=== PATIENT | male | born 1985 | race Two or more races ===

== ENCOUNTER 2024-10-27 09:27 | Emergency (ER) | payer SELFPAY ==
[2024-10-27 09:44] VITALS: BP 135/85; PULSE 104; RESP 18; TEMP 36.6; O2SAT 98; BMI 32.0
--- NOTE | 2024-10-27 10:08 | XR_ITS ---
Examination: CT brain head without contrast. 2-D sagittal coronal reconstructions Date and time of exam:October 27, 2024, 1018 hrs CTDI: vol (mGy): 50.4. DLP: (mGycm): 1067 Technique: Multiple CT axial sections of the brain have been obtained, 5 mm slice thickness. Contrast has not been administered. 2-D sagittal, coronal reconstructions have been obtained Low dose protocols were performed. One or more of the following dose reduction techniques were used; automated exposure control, adjustment of the mA and/or KV according to patient size, use of iterative reconstruction technique. Findings: No significant ventricular enlargement. Intra-axial or extra-axial hemorrhage density is not seen. No mass effect or midline shift Basal cisterns are not remarkable. Fourth ventricle is midline. Cranial vault intact. Impression: Negative for acute hemorrhage, mass effect or midline shift
--- NOTE | 2024-10-27 10:11 | PD.EDRME ---
Rapid Medical Screening Exam RME Arrival date/time: 10/27/24 09:27 39-year-old male sent over by his PCP due to severe headache x 2 days. Patient also complaining of generalized weakness. I have greeted and performed a focused initial assessment of this patient. Initial appropriate labs ordered at this time. A comprehensive ED assessment and evaluation of the patient and analysis of all test and completion of medical decision making process will be conducted by additional ED provider. Chief Complaint: Headache Time Seen by Provider: 10/27/24 09:32 Vital signs: Vital Signs Temperature 97.9 F 10/27/24 09:44 Pulse Rate 104 H 10/27/24 09:44 Respiratory Rate 18 10/27/24 09:44 Blood Pressure 135/85 H 10/27/24 09:44 Pulse Oximetry (%) 98 10/27/24 09:44 Oxygen Delivery Method Room Air 10/27/24 09:44
[2024-10-27] MEDS: IBUPROFEN TAB 400 MG TABLET 800 MG PO (10:21)
[2024-10-27] MEDS: METOCLOPRAMIDE 5 MG TABLET 10 MG PO (10:22)
[2024-10-27] MEDS: DiphenhydrAMINE ELIX 25 MG/10 ML UDC 50 MG PO (10:22)
[2024-10-27 10:43] LABS: Basophils # (Auto) 0.1 Thou/mm3 (0.0-0.2); Basophils % (Auto) 1 % (0-2.5); Eosinophils # (Auto) 0.1 Thou/mm3 (0.0-0.5); Eosinophils % (Auto) 1 % (0-10); Hematocrit 43.6 % (41.0-53.0); Hemoglobin 16.1 g/dL (13.5-16.0); Immature Granulocytes Auto 0.01 Thou/mm3 (0.00-0.00); Lymphocytes # (Auto) 2.4 Thou/mm3 (1.0-4.8); Lymphocytes % (Auto) 41 % (10-50); Mean Corpuscular HGB Conc 36.9 g/dl (31.0-37.0); Mean Corpuscular Hemoglobin 32.3 pg (25.0-35.0); Mean Corpuscular Volume 88 fL (80-100); Monocytes # (Auto) 0.4 Thou/mm3 (0.0-0.8); Monocytes % (Auto) 6 % (0-12); Neutrophils # (Auto) 3.0 Thou/mm3 (1.8-7.7); Neutrophils % (Auto) 51 % (37-80); Nucleated Red Blood Cell # 0.00 Thou/mm3 (0.00-0.00); Nucleated Red Blood Cell % 0 /100 WBC (0); Platelet Count 208 Thou/mm3 (140-440); RDW Standard Deviation 37.7 fL (35.1-43.9); Red Blood Count 4.98 Miln/mm3 (4.50-5.90); White Blood Count 5.8 Thou/mm3 (3.8-10.6)
[2024-10-27 10:49] LABS: Amphetamine/Methamp Scrn,U Negative (Negative); Barbiturate Screen,Urine Negative (Negative); Benzodiazepines Screen,Urine Negative (Negative); Benzoylecgonine Screen, Ur Negative (Negative); Fentanyl Screen,Urine Negative (Negative); Opiate Screen,Urine Negative (Negative); THC Screen,Urine Negative (Negative)
[2024-10-27 11:02] LABS: Alanine Aminotransferase 55 U/L (10-49); Albumin, Serum 4.8 gm/dL (3.5-5.0); Albumin/Globulin Ratio 1.8 (1.2-2.2); Alcohol, Blood Medical < 3.0 mg/dL (0-10.0); Alkaline Phosphatase 167 U/L (46-116); Anion Gap 13 (7-16); Aspartate Amino Transferase 31 U/L (0-34); BUN/Creatinine Ratio 7 Ratio (12-20); Bilirubin,Total 0.6 mg/dL (0.3-1.2); Blood Urea Nitrogen 8 mg/dL (9-23); Calcium 9.7 mg/dL (8.3-10.6); Calcium (Corrected) 9.7 mg/dL (8.5-10.1); Carbon Dioxide 26.9 mMol/L (20.0-31.0); Chloride 97 mMol/L (98-107); Creatinine (Component) 1.2 mg/dL (0.6-1.3); Estimated Creatinine Clearance 96.5 mL/min (>60); Globulin 2.6 gm/dL (2.3-3.5); Glucose 322 mg/dL (74-106); Lipase 25 U/L (12-53); Osmolality,Calculated 284 (275-295); Potassium 4.6 mMol/L (3.4-5.1); Sodium 137 mMol/L (136-145); Total Protein 7.4 gm/dL (5.7-8.2); eGFR > 60 See Note
[2024-10-27 12:10] LABS: Glucose Estimated Average 258 mg/dL (80-131); Hemoglobin A1C 10.6 % Hgb (4.8-6.0)
[2024-10-27 12:25] VITALS: BP 133/86; PULSE 99; RESP 18; TEMP 36.7; O2SAT 98
--- NOTE | 2024-10-27 12:50 | EDNOTE_ITS ---
ED Headache RME/HPI General Chief Complaint: Headache Stated Complaint: ALFARO, HTN during intercourse Time Seen by Provider: 10/27/24 09:32 Arrival date/time: 10/27/24 09:27 RME / HPI RME / HPI Narrative: 39-year-old male patient came in for evaluation regarding headache. Patient's been having headache for the last 2 days, it happened after sex. Headache is located on the right temporal area, described as dull ache, severity 8 out of 10. Also complained of generalized body weakness. Patient is currently taking medication for diabetes mellitus. Denies any upper or lower extremity weakness denies any focal neurologic deficit. Denies any other complaints. 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 Related Data Previous Rx's ?Medication ?Instructions ?Recorded rizatriptan 10 mg tablet (Maxalt) 10 mg PO Q2H PRN tate doe headache 10/27/24 #30 tabs Allergies Allergy/AdvReac Type Severity Reaction Status Date / Time No Known Drug Allergies Allergy Verified 10/27/24 09:33 Review of Systems Review of Systems Narrative Review of Systems: Review of system reviewed and within normal limits except mentioned in HPI ED Exam Narrative Physical exam: VITAL SIGNS: Reviewed. GENERAL APPEARANCE: Alert and interactive, follows commands, no acute distress, HEAD AND FACE: Non-traumatic. ENT: PERRL, pink conjunctivitis, eyelid no trauma, Mucous membrane moist. NECK: Supple, nontender, no nuchal rigidity. CHEST: No tenderness, no crepitus, no paradoxical movement, no retractions. LUNGS: Clear, well ventilated, symmetric, no rales, no wheezing, no ronchi, no stridor, good breath sounds bilaterally. HEART: Regular rate, regular rhythm, no murmur, no gallops. ABDOMEN: Soft, positive bowel sounds, nondistended, no guarding, nontender, no rebound, no masses, RECTAL: Deferred. GENITAL: Deferred. NEUROLOGICAL: Gross motor function intact sensory function intact, Appropriate for age. MUSCULOSKELETAL: low back nontender, full range of motion. EXTREMITIES: Nontender, full range of motion. SKIN: Color pink, dry, no rash, no lacerations, no abrasions, no contusions. LYMPHATICS: Deferred. Course Quality Measures none Orders Category Date Time Status CT head/brain wo con Stat Exams 10/27/24 10:08 Completed CBC Stat Lab 10/27/24 10:30 Completed CMP [Comprehensive Metabolic Panel] Stat Lab 10/27/24 10:30 Completed Drug Screen,Urine Stat Lab 10/27/24 10:28 Completed Hemoglobin A1C [Glycohemoglobin w (eAG)] Stat Lab 10/27/24 10:30 Completed Lipase Stat Lab 10/27/24 10:30 Completed MAGGIE [Alcohol, Blood Medical] Stat Lab 10/27/24 10:30 Completed DiphenhydrAMINE [Benadryl] Med 10/27/24 10:11 Discontinued 50 mg PO X1 ONE Ibuprofen Tab [Motrin Tab] Med 10/27/24 10:10 Discontinued 800 mg PO X1 ONE Ketorolac Inj [Toradol Inj] Med 10/27/24 12:50 Once 30 mg IM X1 ONE Metoclopramide [Reglan] Med 10/27/24 10:10 Discontinued 10 mg PO X1 ONE Vital Signs Vital signs: Vital Signs Temperature 97.9 F 10/27/24 09:44 Pulse Rate 104 H 10/27/24 09:44 Respiratory Rate 18 10/27/24 09:44 Blood Pressure 135/85 H 10/27/24 09:44 Pulse Oximetry (%) 98 10/27/24 09:44 Oxygen Delivery Method Room Air 10/27/24 09:44 Headache MDM Narrative MDM Narrative:: 39-year-old male patient came in for evaluation regarding headache. Patient's been having headache for the last 2 days, it happened after sex. Headache is located on the right temporal area, described as dull ache, severity 8 out of 10. Also complained of generalized body weakness. Patient is currently taking medication for diabetes mellitus. Denies any upper or lower extremity weakness denies any focal neurologic deficit. Denies any other complaints. 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 CT scan of the head came back unremarkable. Patient's workup is significant for hemoglobin A1c above 10 and a blood sugar of 322. Patient is taking blood pressure medication. However patient told me that he continue to drink energy drink and soda from time to time because of driving. Patient was given Toradol, Reglan Benadryl and initially given Motrin also with complete resolution of headache. Patient was advised to stop drinking sugary drinks and decrease eating carbohydrates. Patient appears nontoxic and hemodynamically stable .Decision to discharge the patient. The patient/family was given an opportunity to ask questions and understood their discharge instructions. Discharge instructions specifically included follow up provider and time frame, current and/or new medications and possible side effects, indications for sooner follow up or return to the emergency department, and the expected course of current diagnosis. Patient reports feeling better as well and giving evidence of significant clinical improvement, I believe patient is now a candidate for discharge. Patient data External records reviewed:: None Clinical information provided by:: patient Social determinants that could affect healthcare access:: none Patient has the following chronic illnesses:: Diabetes mellitus How is presenting disease/condition affected by chronic disease/condition?: exacerbated by Evaluation data The following diagnostics were reviewed and interpreted by me:: lab results and radiology exam(s) Lab and/or radiology exams considered but not ordered:: None Interpretation Summary: See results MDM Medications / Prescriptions Medications or Prescriptions considered but not ordered:: None Medication administrations:: Medication Administration History Ketorolac Tromethamine (Ketorolac Inj 60 Mg/2 Ml Vial) 30 mg IM X1 ONE Stop: 10/27/24 12:51 Discontinued Medications Diphenhydramine HCl (Diphenhydramine Elix 25 Mg/10 Ml Udc) 50 mg PO X1 ONE Stop: 10/27/24 10:12 Last Admin: 10/27/24 10:22 Dose: 50 mg Documented By: ELDER Ibuprofen (Ibuprofen Tab 400 Mg Tablet) 800 mg PO X1 ONE Stop: 10/27/24 10:11 Last Admin: 10/27/24 10:21 Dose: 800 mg Documented By: ELDER Metoclopramide HCl (Metoclopramide 5 Mg Tablet) 10 mg PO X1 ONE Stop: 10/27/24 10:11 Last Admin: 10/27/24 10:22 Dose: 10 mg Documented By: ELDER Toradol Reglan Benadryl and Motrin Consultations Consultation(s) initiated? (list below): No Diagnosis Differential diagnosis headache: migraine, tension headache and headache Most likely diagnosis given after review of the tests above:: Postcoital headache, diabetes mellitus poorly controlled Admission Indicated Admission indicated?: not indicated Explain why admission is indicated or not indicated:: Stable Admission Request Was there a request for admission?: No Disposition Plan Disposition Plan: Discharge Discharge Attestation Discharge Attestation: The patient and all family members were given an opportunity to ask questions and understood the discharge instructions. Discharge instructions specifically effects, indications for sooner follow up or return to the emergency department, and the expected course of current diagnosis. Patient condition: Stable Discharge Plan Plan Patient Disposition: HOME (Self Care) Discharge Disposition comment: Stable Prescriptions/Referrals Prescriptions/Med Rec: New rizatriptan [Maxalt] 10 mg tablet 10 mg PO Q2H PRN (Reason: migraine headache) Qty: 30 0RF Rx Instructions: do not exceed 3 doses per 24 hrs Referrals: Saud Weaver MD [Primary Care Provider] - In 1 week Problem List Clinical Impression: Headache Patient/Caregiver Discharge Instructions Discharge Activity: activity as tolerated Education Materials: Self-Care for Headaches Additional Instructions: Thank you for the opportunity for serving you today. You are stable for discharged . You are advised to: Follow-up with your PCP in 1 to 2 days Return to ED for worsening of symptoms Increase oral fluids Take medication as prescribed Please stop drinking sugary drinks, energy drinks, and decrease your intake of carbohydrates Print Language: Setswana Stand Alone Forms: [facility] Award Info., Patient Portal Info Letter DAVE/MARY Supervising Physician DAVE/MARY Supervising Physician: MD Parish
[2024-10-27] MEDS: KETOROLAC INJ 60 MG/2 ML VIAL 30 MG IM (13:10)
== END 2024-10-27 13:22 | disposition home or self-care (01) ==
PROVIDERS: Nurse Practitioner Primary Care; Emergency Provider Family Medicine; PCP Family Medicine
DX: R51.9 Headache, unspecified (principal)
CPT/HCPCS: 36415; 70450; 80053; 80307; 80320; 83036; 83690; 85025; 96372; 99283; J1885; A9270; G0480